=== PATIENT | female | born 1945 | race Caucasian/White ===

== ENCOUNTER → 2016-05-27 | Day surgery (SDC) | payer OTHER, MEDICARE ==
[2016-05-18 11:06] VITALS: Ht 157.5 cm; Wt 99.1 kg
--- NOTE | 2016-05-26 11:33 | HISTORY & PHYSICAL EXAMINATION ---
DATE OF ADMISSION: 05/27/2016 HISTORY OF PRESENT ILLNESS: A 71-year-old female presents today for preop evaluation requesting surgery to painful bunion and callus formation. Condition is located in the left big toe described as burning, numbness and sore, was first noted several years ago. Severity of the condition is graded as an 8 on a 10 point scale on the left. The patient denies any associated signs and symptoms. She indicates accommodative padding improves the condition a little but does not relieve the pain, so she has also had skin breakdown over the area. The patient is a long-term patient of Dr. Powell in [place] who has had multiple years of conservative treatments, accommodative padding, accommodative shoes, over the counter medications and was referred to this office for surgical intervention due to the nature and severity of her discomfort with no relief with conservative care over several years. PAST SURGICAL HISTORY: Wrist surgery in 1970, in 1970, ankle surgery, back surgery in 2013 and 2014, bunionectomy in 1965. PAST MEDICAL HISTORY: Thyroid conditions, skin problems, skin cancer, hypercholesterolemia, hypertension and stroke, back problems, arthritis. MEDICATIONS: Primidone, zolpidem, ranitidine, atenolol, simvastatin, vitamin D3, vitamin E, aspirin, Lexapro. ALLERGIES: ADHESIVE TAPE. FAMILY HISTORY: Arthritis, COPD, diabetes, gout, heart attack, vertigo. SOCIAL HISTORY: The patient admits to alcohol use, drinking described as social. REVIEW OF SYSTEMS: Unremarkable except chief complaint. PHYSICAL EXAMINATION: CONSTITUTIONAL: The patient appears well-developed and nourished with good attention to body grooming and habitus. HEAD AND FACE: Head is normocephalic and atraumatic without any gross head, face, or neck masses. EYES: Conjunctival and pupillary reaction to light and accommodation are normal. EARS, NOSE, MOUTH, AND THROAT: Unremarkable. NECK EXAMINATION: Neck is supple. Trachea is midline. CARDIOVASCULAR EXAMINATION: Normal S1, S2 without murmur, gallops, rubs, or clicks noted. RESPIRATORY: Chest is symmetric. LUNGS: Clear to auscultation bilaterally. GASTROINTESTINAL: Abdominal organs, bladder, and kidneys show no abnormalities, masses, tenderness, or rigidity. LYMPHATIC EXAMINATION: No popliteal, inguinal, or supraclavicular lymphadenopathy noted. LOWER EXTREMITY EXAMINATION: Pulses DP 2/4, PT 1/4, digital hair sparse. Swelling is noted on the dorsomedial aspect of the left forefoot shows edema +3/6. DERMATOLOGIC: Inspection interphalangeal joint, left hallux shows red bursal projection with swelling over the bony prominence with superficial skin breakdown directly over the joint. NEUROLOGICAL: Touch, pin, vibratory pain, proprioception sensations are absent. Epicritic sensation per Brenner-Valery monofilament 5.07, absent decreased sensation from the mid foot distally. MUSCULOSKELETAL: Muscle tone is normal. Muscle strength 5/5 all groups tested. Inspection palpation of bones and joints shows first metatarsophalangeal joint evidence of an enlarged dorsal medial eminence on the left foot. Range of motion limited and painful enlarged dorsal medial eminence, extremely painful and prominent. No range of motion noted on dorsiflexion and plantarflexion due to bony endpoint and crepitus palpable. IMPRESSION: 1. Hallux valgus, left. 2. Hallux rigidus, left. 3. Status post right foot surgery, Dr. Dhillon 2000, difficulty walking, pain lower extremity left, peripheral neuropathy secondary to spinal stenosis. PLAN: I discussed mechanical and congenital etiology of patient's deformity. Conservative treatment consisting of: 1. Extra depth shoes. 2. Accommodative padding. 3. Steroid injections. 4. Nonsteroidals. 5. Orthotics to slow down progression of deformity. SURGICAL PROCEDURES TO BE PERFORMED: 1. Cheilectomy, left first MTPJ with, 2. Total implant arthroplasty, left first MTPJ, 3. Modified Vargas tenotomy, left first MTPJ. This will be performed under general anesthesia as an outpatient at surgery center. The procedure, risks and complications were fully reviewed with the patient. Consent form, foot diagram and illustration reviewed in all their entire and all the patient's questions were answered. Complications were discussed in detail with the patient including pain, infection, swelling that may or may not be excessive, pins and needles feeling, numbness, metatarsalgia, excessive bleeding, delayed or nonhealing of bone, delayed or nonhealing of skin, enlarged scar, failure of the procedure, reoccurrence or worsening of condition which may or may not require further surgery, adverse reaction to anesthesia, allergic reaction to suture or other implant material, loss of toe, foot, or leg, flail toe, stiff toe, short toe, elevated toe, transfer lesion or callus, peripheral neurovascular complications such as phlebitis, damage to nerves or vascular structures, significant chronic pain, chronic nerve pain or general medical complications. The patient will be required to be in a surgery shoe for a minimum of 3-6 weeks and not return to dress shoe for 8-12 weeks depending on the postop edema. The patient is aware this is an elective type procedure and I recommend a second opinion. The patient stated they understood. Consent form was signed with a copy of the foot diagram and illustration given to the patient. Verbal and written postop instructions were given. The patient will be required to be in a surgery shoe for a minimum of 3-6 weeks and not return to dress shoe for 8-12 weeks depending on the postop edema. At the time of the preoperative appointment, prescriptions for Keflex and Percocet were dispensed. The patient was instructed to keep the dressing clean, dry, and intact until seen at the office. JESUS
[~2016-05-27] VITALS: Ht 157.5 cm; Wt 99.1 kg
[~2016-05-27] MED LIST: ASPI325T4 PO; ATEN50TA PO; ATROPINE SULFATE 0.1 MG/ML 5ML SYR IV PRN; BIOT1CAP8 PO; BUPIVACAINE 0.5 % 5 MG/1 ML MPF 30ML VIAL ONE; CEFAZOLIN 2000 MG/60 ML D5W 60 ML IV SCH; CHOL100010 PO; COEN75CA PO; DEXAMETHASONE SOD INJ 4 MG/ML VIAL ONE; EpHEDrine SULFATE INJ 50 MG/ML AMP IV PRN; FENTANYL CITRATE INJ 50 MCG/1 ML 2 ML VIAL IV PRN; FENTANYL CITRATE INJ 50 MCG/1 ML 2 ML VIAL ONE; GABA-112 PO; GLYCOPYRROLATE INJ 0.2 MG/ML VIAL ONE; LACTATED RINGER'S 1000ML IV SCH; LIDOCAINE HCL 1% MPF 2 ML VIAL ONE; LIDOCAINE HCL 2% 2 ML VIAL (20MG/ML) ONE; LSN/2025 PO; METH-589 PO; MIDAZOLAM HCL 1 MG/ML 2ML VIAL ONE; MULT-506 PO; NEOSTIGMINE METHYLSULFATE 5 MG/5 ML SYR ONE; ONDANSETRON INJ 2 MG/ML 2 ML VIAL IV PRN; ONDANSETRON INJ 2 MG/ML 2 ML VIAL ONE; OXYB5TAB74 PO; PRIM50TA29 PO; PROPOFOL IV EMULSION 10 MG/ML 20 ML VIAL IV ONE; ROCURONIUM BROMIDE 10 MG/ML 5 ML VIAL ONE; ROPIVACAINE 0.5% 5 MG/ML 30 ML VIAL ONE; SODIUM CHLORIDE 0.9% 1000ML 1,000 ML IV SCH; VITA400C3 PO; ZCRT/40 PO; ZNTT/150 PO; ZOLP5TAB6 PO
--- NOTE | 2016-05-27 06:34 | History & Physical Bridge - SC ---
H&P Re-Evaluation Bridge Note: I have examined the patient, reviewed the History & Physical and in the interval since the performance of the History & Physical I have noted the following changes of clinical significance: No changes noted
--- NOTE | 2016-05-27 06:35 | Discharge Instructions-SurgCtr ---
Discharge Instructions Visit Reason for Visit: Left Foot Oa, Hav, Hallux Limitus Discharge Goals Goal(s): Decrease discomfort Activity Recommendations Activity Limitations: as noted below Medications: * Resume previous medications unless instructed by your surgeon. * Take your medications as prescribed. Call our office ([phone]) at any time, if you experience severe pain that does not subside shortly after taking your pain medication. Activity: * Do not put any standing weight on your operated foot/ankle. Use the crutches or walker as instructed. Special Care: * Keep your bandage clean and dry. Do not remove your bandage unless otherwise instructed. A small amount of blood may appear on the bandage over the surgical site. Call our office ([phone]) if you bandage becomes blood-soaked or wet. * Elevate your operated foot/ankle on pillows, above the level of your heart, as often as possible during the first 2-3 days following surgery. Keep your knee flexed slightly with a pillow under your knee when you elevate your foot/ankle. * Apply a ice bag to your foot/ankle over the operative site for 20-30 minutes out of each hour while you are awake. Do not allow the ice bag to directly contact bare skin. * Avoid bumping or handling any pins visible in your toes. If any pin feels or appears loose, call the office ([phone]). * Take your oral temperature in the morning and at bedtime. Call our office ([phone]) if your temperature rises above 101 degrees Fahrenheit. Call your surgeon's office at ([phone]) for any problems or concerns such as excessive bleeding and/or pain unrelieved by your prescribed pain medications. If you have any questions, please do not hesitate to ask them. Avoid all tobacco products. If you need help to stop smoking, call [place]'s FREE QUITLINE at . This is a free call. Follow-up: Follow-up with Dr. Ray Anesthesia . Post Anesthesia Instructions: If you have had General Anesthesia or IV Sedation: * Do not drive today. * Resume driving when surgeon permits. * Do not make important decisions or sign legal documents today. * Call surgeon for: 1. Temperature elevations greater than 101 degrees F. 2. Uncontrollable pain. 3. Excessive bleeding. 4. Persistent nausea and vomiting. 5. Medication intolerance (nausea, vomiting or rash). * For nausea and vomiting use only clear liquids such as: tea, soda, bouillon until nausea subsides, then gradually increase diet as tolerated. * If you have any concerns or questions, call your surgeon's office. If physician is unavailable and it is an emergency, call 911 or go to the nearest emergency room. . Diet Recommendations Home Diet: resume previous diet Pending Studies Studies pending at discharge: no Medical Emergencies . Who to Call and When: Medical Emergencies: If at any time you feel your situation is an emergency, please call 911 immediately. . Non-Emergent Contact Non-Emergency issues call your: Primary Care Provider . . "Provider Documentation" section prepared by Nelia Johns.
--- NOTE | 2016-05-27 11:34 | OPERATIVE REPORT ---
DATE OF OPERATION: 05/27/2016 PREOPERATIVE DIAGNOSES: Hallux abductovalgus hallux limitus, POSTOPERATIVE DIAGNOSES: Same. PROCEDURES: Modified Vargas, tenotomy extensor hallus brevis and adductor hallucis left first MTPJ, fibular sesamoid excision, left first cheilectomy, left first MTPJ, total implant arthroplasty left first MTPJ. SURGEON: Dr. Ray. ANESTHESIA: General with popliteal lower extremity block by anesthesia. HEMOSTASIS: Pneumatic ankle tourniquet inflated to 250 mmHg for a total tourniquet time of 108 minutes. MATERIALS: 2-0, 3-0 Vicryl, 4-0 nylon, 5.0 PDS, Arthrosurface total motion implant 1.5 mm x 3.5 mm. COMPLICATIONS: None. The patient tolerated the procedure and anesthesia well without complications, transferred to recovery room with vital signs stable and neurovascular status intact. OPERATION AND FINDINGS: PROCEDURE: The patient was brought to the OR and placed on the OR table in supine position. Upon completion of general anesthesia and popliteal block by the anesthesia department, a well-padded ankle tourniquet was applied to the extremity and the extremity was scrubbed, prepped and draped in the usual aseptic fashion. Attention was directed to the first metatarsophalangeal joint where a linear incision was made just medial to tendon extensor hallucis longus. Dissection was carried down to the level of the capsular structures. Attention was directed to the first MTPJ. A long linear capsulotomy was created. The adductor tendon was released from the lateral aspect of the joint and tenotomy was performed also of the adductor tendon and of extensor hallucis brevis removing a small section of the tendon proximal to the joint line. Guidewire was placed under fluoroscan and the central aspect first metatarsal. Drill guide was used for this access articular surface. This was checked using fluoro and found to be directly in the center aspect of the metatarsal. The metatarsal component was drilled and tapped in typical AO type fashion. The trial implant was placed. It should be noted that sizing was standard and that the joint was decompressed approximately 2 mm. The dorsal reamer guide was also used. The sizing trial was used and a significant amount of articular cartilage surrounding the joint was removed using a saw and a rongeur. At this time, a guidewire was then placed intercuticular component in the phalanx. Care was taken to assure the medial, lateral and dorsal plantar views was centrally in the aspect of the area. It should be noted that there was no bone left on the metatarsal component and approximately only 10% of the cartilage on the posterior lateral aspect of the base of the proximal phalanx, everything else was down to the articular surface. The area was drilled and tapped over the proximal phalanx. The osteophytes were cleaned up using a saw and a sagittal. The trial implant was in place. Due to little motion this was removed and then the implant was then drilled further into the proximal phalanx to decompress the joint a little more. It should be also noted at this time, it was elected to take out the fibular sesamoid due to compression on the joint. Fibular sesamoid was removed in total and care was taken to check the long flexor tendon after excision. The wound was copiously lavaged with normal saline. Closure began of the capsular structures using 2-0 Vicryl. Superficial deep structures were closed using 3-0 Vicryl. Skin margins were closed using 5-0 PDS in a subcuticular fashion with interspersed 4-0 nylon simple interrupted fashion. The fluoroscan was used to check pictures and motion. It should be noted there was significant more motion upon removal of the fibular sesamoid. Pneumatic ankle tourniquet was released with normal hyperemic pratt digits 1 through 5. Dry sterile compressive dressing consisting of Adaptic soaked in Betadine, 4 x 4's, Danielle and an Roger was applied. The patient tolerated the procedure and anesthesia well without complications, transferred to recovery room with vital signs stable and neurovascular status intact. I attest to the content of the Intraoperative Record and any orders documented therein. Any exceptions are noted below. ERICKAD
--- NOTE | 2016-05-27 11:54 | Anesthesia Progress Nt - [facility] ---
Anesthesia Post Op Note Date & Time May 27, 2016 at 11:53 Vital Signs Pain Intensity: 0 Vital Signs Past 12 Hours Date Time Temp Pulse Resp B/P Pulse Ox O2 Delivery O2 Flow Rate FiO2 05/27/16 11:38 36.2 64 16 140/68 94 Room Air 05/27/16 11:19 60 21 91 05/27/16 11:19 59 21 05/27/16 11:18 36.6 93 Room Air 05/27/16 11:18 130/63 05/27/16 11:14 63 16 05/27/16 11:14 63 16 132/56 97 05/27/16 11:09 58 18 100 05/27/16 11:09 57 18 05/27/16 11:08 133/58 05/27/16 11:04 61 17 05/27/16 11:04 60 17 100 05/27/16 11:03 127/60 05/27/16 10:59 59 20 05/27/16 10:59 59 20 100 05/27/16 10:58 59 20 05/27/16 10:58 59 20 127/57 100 05/27/16 10:53 63 17 129/64 100 05/27/16 10:53 63 17 05/27/16 10:48 65 18 05/27/16 10:48 65 18 128/63 100 05/27/16 10:44 136/57 05/27/16 10:43 69 25 100 05/27/16 10:43 36.8 73 20 130/58 98 Diffusion Mask 6 05/27/16 10:43 69 25 05/27/16 08:06 60 15 100 05/27/16 08:06 58 15 05/27/16 08:04 109/40 05/27/16 08:01 57 18 05/27/16 08:01 57 18 100 05/27/16 08:00 113/46 05/27/16 07:59 60 14 83/51 100 05/27/16 07:59 59 14 05/27/16 07:54 60 14 05/27/16 07:54 60 14 105/55 100 05/27/16 07:49 60 19 05/27/16 07:49 60 19 115/56 98 05/27/16 07:48 77/57 05/27/16 07:44 62 23 97 05/27/16 07:44 61 23 1/25/17 07:43 110/52 05/27/16 07:40 112/55 05/27/16 07:39 62 13 99 05/27/16 07:39 62 13 05/27/16 07:35 136/44 05/27/16 07:34 60 13 05/27/16 07:34 13 05/27/16 07:29 60 05/27/16 07:24 60 05/27/16 07:19 61 05/27/16 07:14 61 05/27/16 06:45 36.6 69 18 132/66 97 Room Air Notes Mental Status: alert / awake / arousable, participated in evaluation Pt Amnestic to Procedure: Yes Nausea / Vomiting: adequately controlled Pain: adequately controlled Airway Patency, RR, SpO2: stable & adequate BP & HR: stable & adequate Hydration State: stable & adequate Anesthetic Complications: no major complications apparent
[2016-05-27 11:58] VITALS: BP 128/79; PULSE 66; TEMP 36.4; O2SAT 95
--- NOTE | 2016-05-27 14:18 | DIAGNOSTIC IMAGING REPORT ---
LEFT FOOT 2 VIEWS CLINICAL HISTORY: POST OP XRAY LEFT FOOT COMPARISON STUDY: None. FINDINGS: Postoperative changes consistent with a left first metatarsophalangeal total arthroplasty. The hardware appears intact. No fracture or dislocation. Soft tissue swelling at the first MTP joint is likely postoperative. Posterior calcaneal spur. There is up to 2 mm of periprosthetic lucency at the proximal phalanx of the first toe. IMPRESSION: 1. Status post left first metatarsophalangeal arthroplasty. The hardware appears intact. 2. Mild periprosthetic lucency at the proximal phalanx of the left first toe. Electronically signed by: Moi Degroot M.D. 05/27/2016 2:17 PM Dictated Date/Time: 05/27/2016 2:14 PM
--- NOTE | 2016-05-27 14:19 | DIAGNOSTIC IMAGING REPORT ---
INTRAOPERATIVE FLUOROSCOPY, LEFT FOOT CLINICAL HISTORY: Left first MTP joint arthroplasty. COMPARISON STUDY: None. FLUOROSCOPY TIME: 33.6 seconds. 2 images submitted. FINDINGS: There is a total arthroplasty of the left first MTP joint. The hardware appears intact. The alignment is anatomic. IMPRESSION: Fluoroscopy provided for left first MTP joint arthroplasty. Electronically signed by: Moi Degroot M.D. 05/27/2016 2:18 PM Dictated Date/Time: 05/27/2016 2:17 PM
== END | disposition home or self-care (01) ==
LOC: X.SURG 06:37
PROVIDERS: ATTEND Podiatrist Foot & Ankle Surgery
DX: M20.12 Hallux valgus (acquired), left foot (principal); M20.22 Hallux rigidus, left foot; G62.9 Polyneuropathy, unspecified; M51.9 Unspecified thoracic, thoracolumbar and lumbosacral intervertebral disc disorder; E78.00 Pure hypercholesterolemia, unspecified; I10 Essential (primary) hypertension; Z86.73 Personal history of transient ischemic attack (TIA), and cerebral infarction without residual deficits; Z91.048 Other nonmedicinal substance allergy status; Z82.61 Family history of arthritis; Z83.6 Family history of other diseases of the respiratory system; Z82.3 Family history of stroke; Z83.3 Family history of diabetes mellitus; Z82.49 Family history of ischemic heart disease and other diseases of the circulatory system; Z83.49 Family history of other endocrine, nutritional and metabolic diseases; Z82.0 Family history of epilepsy and other diseases of the nervous system